=== PATIENT | male | born 1965 | race Caucasian/White ===

== ENCOUNTER 2018-01-01 07:52 | Day surgery (SDC) | payer BC ==
[2017-12-30 15:10] VITALS: BP 167/106
[2018-01-01] VITALS (19 sets, daily range): BP systolic 105–136; BP diastolic 62–95
[~2018-01-01] VITALS: Ht 180.3 cm; Wt 100.8 kg
[~2018-01-01 07:52] MED LIST: CARV25TA PO; CEFAZOLIN SODIUM 1 GM VIAL IVP SCH; MULT-1203 PO
[2018-01-01] MEDS ORDERED: LACTATED RINGERS 1000ML 1,000 ML IV ONE (08:30)
[2018-01-01] MEDS: CEFAZOLIN SODIUM 1 GM VIAL ONE ×2 (09:45→11:43)
[2018-01-01] MEDS ORDERED: DEXAMETHASONE SOD PHOSPHATE 10MG/ML 1ML VIAL ONE (11:16)
[2018-01-01] MEDS ORDERED: LIDOCAINE PF 2% 5ML ABBOJECT ONE (11:16)
[2018-01-01] MEDS ORDERED: MIDAZOLAM HCL 1 MG/ML 2ML VIAL ONE (11:16)
[2018-01-01] MEDS ORDERED: ONDANSETRON HCL 4 MG/2 ML VIAL ONE (11:16)
[2018-01-01] MEDS ORDERED: FENTANYL CITRATE PF 50 MCG/1 ML 2ML VIAL ONE (11:17)
[2018-01-01] MEDS ORDERED: PROPOFOL 10 MG/ML 20ML VIAL IV ONE (11:47)
[2018-01-01] MEDS ORDERED: BUPIVACAINE/PF 0.25% 30ML VIAL IJ ONE (12:10)
[2018-01-01] MEDS ORDERED: BACITRACIN 28.4 GM OINT TP ONE (12:58)
[2018-01-01] MEDS ORDERED: ONDANSETRON HCL MDV 20ML 2 MG/ML VIAL ONE (14:02)
== END 2018-01-01 15:05 | disposition home or self-care (01) ==
LOC: DAH 07:52
PROVIDERS: ATTEND Urology
DX: Z30.2 Encounter for sterilization (principal); N43.40 Spermatocele of epididymis, unspecified; E66.9 Obesity, unspecified; I10 Essential (primary) hypertension; Z79.899 Other long term (current) drug therapy; Z98.890 Other specified postprocedural states
CPT/HCPCS: 55250; 54840; 88302; 88304; A4218; A4510; A4600; A6446; J0690; J1100; J2001; J2250; J2405; J2704; J3010; J3490; J7120